=== PATIENT | male | born 1935 ===

== ENCOUNTER 2022-07-05 16:48 | Emergency (ER) | payer MEDICARE, MEDICAID ==
[2022-07-05 18:00] LABS: #Lymphocytes 1.8 thou/uL (1.20-3.40); #Monocytes 0.7 thou/uL (0.11-0.59); #Neutrophils 6.9 thou/uL (1.40-6.50); %Basophils 0.4 % (0.0-1.0); %Eosinophils 0.4 % (0.0-10.0); %Neutrophils 73.2 % (42.0-75.0); Hemoglobin 10.5 g/dL (14.0-18.0); Mean Corpuscular HGB CONC 33.8 g/dL (32.0-36.0); Mean Corpuscular Hemoglobin 27.8 pg (27.0-31.0); Mean Corpuscular Volume 82.2 fl (78.0-98.0); Mean Platelet Volume 6.3 fL (7.4-10.4); Platelet Count 411 10x3/uL (130-400); RBC Distribution Width 14.3 % (11.5-14.5); Red Blood Cell (RBC) Count 3.79 mill/uL (4.70-6.10); White Blood Cell (WBC) Count 9.4 10x3/uL (4.8-10.8)
[2022-07-05] MEDS ORDERED: cefTRIAXone\\ROCEPHIN 1 GM VIAL ONE (18:08)
[2022-07-05 18:21] LABS: ALT (SGPT) 8 U/L (8-55); AST (SGOT) 25 U/L (5-34); Albumin 3.6 g/dL (3.4-4.8); Alkaline Phosphatase 62 U/L (40-110); Anion Gap 13 mmol/L (10-20); BUN (Urea Nitrogen) 18 mg/dL (8.4-25.7); Bilirubin, Total 0.5 mg/dL (0.2-1.2); CK (CPK) 87 U/L (30-200); Calc. Creatinine Clearance 0 mL/min (70-130); Calcium 9.5 mg/dL (7.8-10.44); Carbon Dioxide 24 mmol/L (23-31); Chloride 103 mmol/L (98-107); Estimated GFR 78; Globulin 3.5 g/dL (2.4-3.5); Glucose 104 mg/dL (83-110); Lipase 40 U/L (8-78); Potassium 3.8 mmol/L (3.5-5.1); Protein, Total 7.1 g/dL (5.8-8.1); Sodium 136 mmol/L (136-145)
[2022-07-05 18:39] LABS: CKMB 0.7 ng/mL (0-6.6)
[2022-07-05 19:28] LABS: Bilirubin Negative (Negative); Blood, Urine Negative (Negative); Clarity Clear (Clear); Glucose, Urine (Dipstick) Normal (Negative); Ketone, Urine Negative (Negative); Leukocyte Negative Leu/uL (Negative); Nitrite Negative (Negative); Protein, Urine (Dipstick) Negative (Neg-Trace); Specific Gravity, Urine 1.013 (1.002-1.036); pH, Urine 6.5 (5.0-9.0)
[2022-07-05 20:06] LABS: Troponin I 0.033 ng/mL (< 0.028)
== END 2022-07-05 20:27 | disposition home or self-care (01) ==
LOC: ERS 16:48
DX: J18.9 Pneumonia, unspecified organism (principal); F17.210 Nicotine dependence, cigarettes, uncomplicated
CPT/HCPCS: 36415; 71045; 80053; 81003; 82550; 82553; 83605; 83690; 83880; 84484; 85025; 87040; 93005; 96365; J0696

== ENCOUNTER 2022-07-08 16:06 | Inpatient (IN) | payer MEDICARE, MEDICAID ==
[~2022-07-08 16:06] MED LIST: Iopamidol-370 76% 500 ML 1 ML ONE
[2022-07-08] MEDS ORDERED: Ipratropium/Albuterol 3 ML NEB ONE (16:37)
[2022-07-08] MEDS ORDERED: Lidocaine 1% w/Epinephrine 1:100K 20 ML VIAL ONE (17:03)
[2022-07-08 17:10] LABS: #Lymphocytes 1.5 thou/uL (1.20-3.40); #Monocytes 0.5 thou/uL (0.11-0.59); #Neutrophils 8.5 thou/uL (1.40-6.50); %Basophils 0.1 % (0.0-1.0); %Eosinophils 0.2 % (0.0-10.0); %Lymphocytes 13.9 % (21.0-51.0); %Monocytes 4.5 % (0.0-10.0); %Neutrophils 81.4 % (42.0-75.0); Hemoglobin 11.3 g/dL (14.0-18.0); Mean Corpuscular HGB CONC 34.8 g/dL (32.0-36.0); Mean Corpuscular Hemoglobin 28.4 pg (27.0-31.0); Mean Corpuscular Volume 81.6 fl (78.0-98.0); Mean Platelet Volume 6.3 fL (7.4-10.4); Platelet Count 338 10x3/uL (130-400); RBC Distribution Width 14.4 % (11.5-14.5); White Blood Cell (WBC) Count 10.5 10x3/uL (4.8-10.8)
[2022-07-08 17:35] LABS: ALT (SGPT) 9 U/L (8-55); AST (SGOT) 27 U/L (5-34); Albumin 3.5 g/dL (3.4-4.8); Alkaline Phosphatase 61 U/L (40-110); Anion Gap 14 mmol/L (10-20); BUN (Urea Nitrogen) 16 mg/dL (8.4-25.7); Bilirubin, Total 0.4 mg/dL (0.2-1.2); Calc. Creatinine Clearance 0 mL/min (70-130); Calcium 9.3 mg/dL (7.8-10.44); Carbon Dioxide 21 mmol/L (23-31); Chloride 106 mmol/L (98-107); Estimated GFR 70; Globulin 3.4 g/dL (2.4-3.5); Glucose 115 mg/dL (83-110); Potassium 3.4 mmol/L (3.5-5.1); Protein, Total 6.9 g/dL (5.8-8.1); Sodium 138 mmol/L (136-145)
[2022-07-08 17:55] LABS: CKMB 1.4 ng/mL (0-6.6)
[2022-07-08] MEDS ORDERED: cefTRIAXone\\ROCEPHIN 2 GM VIAL ONE (17:58)
[2022-07-08] MEDS ORDERED: Azithromycin 500 MG VIAL ONE (17:58)
[2022-07-08] MEDS ORDERED: Boostrix 0.5 ML (Tdap) VIAL (>/=7 yrs of age) ONE (18:17)
[2022-07-08] MEDS ORDERED: Azithromycin 250 MG TAB PO SCH (18:30)
[2022-07-08] MEDS ORDERED: Calcium Carbonate 500 MG ChewTAB PO PRN (18:31)
[2022-07-08] MEDS ORDERED: Guaifenesin DM 100-10/5 ML UDCUP PO PRN (18:31)
[2022-07-08] MEDS ORDERED: Ondansetron PF 4 MG/2 ML Vial IVP PRN (18:31)
[2022-07-08] MEDS ORDERED: Benzonatate 100 MG CAP PO PRN (18:34)
[2022-07-08] MEDS ORDERED: Dextrose 5% in Water 1,000 ML IV PRN (20:44)
[2022-07-08] MEDS ORDERED: HumaLOG 300 UNITS/3 ML VIAL SC PRN (20:44)
[2022-07-08] MEDS ORDERED: Dextrose 50% Abboject 50 ML SYRINGE SLOW IVP PRN (20:44)
[2022-07-08] MEDS: Nicotine 14 MG PATCH TD SCH (20:58)
[2022-07-08] MEDS: methylPREDNISolone Sod Succ 40 MG VIAL IVP SCH (20:59)
[2022-07-08] MEDS ORDERED: Potassium Chloride 20 MEQ TAB PO SCH (21:00)
[2022-07-08 21:40] LABS: SARS-CoV-2 NAA Rapid Test Not Detected (NotDetected)
[2022-07-08 23:46] LABS: Strep pneumo Urine Ag NEGATIVE (NEGATIVE)
[2022-07-09 05:10] LABS: #Basophils 0.1 thou/uL (0.0-0.2); #Lymphocytes 0.9 thou/uL (1.20-3.40); #Monocytes 0.1 thou/uL (0.11-0.59); #Neutrophils 5.4 thou/uL (1.40-6.50); %Basophils 1.4 % (0.0-1.0); %Lymphocytes 13.4 % (21.0-51.0); %Monocytes 1.7 % (0.0-10.0); %Neutrophils 83.5 % (42.0-75.0); Hemoglobin 10.7 g/dL (14.0-18.0); Mean Corpuscular HGB CONC 34.2 g/dL (32.0-36.0); Mean Corpuscular Volume 81.9 fl (78.0-98.0); Mean Platelet Volume 6.2 fL (7.4-10.4); Platelet Count 339 10x3/uL (130-400); RBC Distribution Width 14.2 % (11.5-14.5); Red Blood Cell (RBC) Count 3.82 mill/uL (4.70-6.10); White Blood Cell (WBC) Count 6.5 10x3/uL (4.8-10.8)
[2022-07-09 05:38] LABS: ALT (SGPT) 10 U/L (8-55); AST (SGOT) 27 U/L (5-34); Albumin 3.4 g/dL (3.4-4.8); Alkaline Phosphatase 57 U/L (40-110); Anion Gap 16 mmol/L (10-20); BUN (Urea Nitrogen) 15 mg/dL (8.4-25.7); Bilirubin, Total 0.3 mg/dL (0.2-1.2); Calc. Creatinine Clearance 69 mL/min (70-130); Calcium 9.4 mg/dL (7.8-10.44); Carbon Dioxide 21 mmol/L (23-31); Chloride 106 mmol/L (98-107); Estimated GFR 85; Globulin 3.4 g/dL (2.4-3.5); Glucose 133 mg/dL (83-110); Potassium 3.7 mmol/L (3.5-5.1); Protein, Total 6.8 g/dL (5.8-8.1); Sodium 139 mmol/L (136-145)
[2022-07-09] MEDS: methylPREDNISolone Sod Succ 40 MG VIAL IVP SCH ×2 (10:06→20:12)
[2022-07-09] MEDS: Aspirin 81 mg Enteric Coated Tablet PO SCH (10:06)
[2022-07-09] MEDS: Nicotine 14 MG PATCH TD SCH (18:01)
[2022-07-09] MEDS: cefTRIAXone\\ROCEPHIN 1 GM in Sodium Chloride 0.9% 100 ML IVPB SCH (18:03)
[2022-07-09] MEDS: Azithromycin 500 MG in Sodium Chloride 0.9% 250 ML 250 ML IVPB SCH (20:12)
[2022-07-10] MEDS ORDERED: Metoprolol Tartrate 5 MG/5 ML VIAL ONE (00:39)
[2022-07-10] MEDS ORDERED: Metoprolol Tartrate 5 MG/5 ML VIAL IVP SCH (00:45)
[2022-07-10 01:05] LABS: #Lymphocytes 1.4 thou/uL (1.20-3.40); #Monocytes 0.5 thou/uL (0.11-0.59); #Neutrophils 12.7 thou/uL (1.40-6.50); %Basophils 0.1 % (0.0-1.0); %Eosinophils 0.1 % (0.0-10.0); %Lymphocytes 9.2 % (21.0-51.0); %Monocytes 3.5 % (0.0-10.0); Hemoglobin 11.5 g/dL (14.0-18.0); Mean Corpuscular HGB CONC 35.2 g/dL (32.0-36.0); Mean Corpuscular Hemoglobin 28.7 pg (27.0-31.0); Mean Corpuscular Volume 81.4 fl (78.0-98.0); Mean Platelet Volume 6.5 fL (7.4-10.4); Platelet Count 395 10x3/uL (130-400); RBC Distribution Width 14.4 % (11.5-14.5); Red Blood Cell (RBC) Count 4.02 mill/uL (4.70-6.10); White Blood Cell (WBC) Count 14.6 10x3/uL (4.8-10.8)
[2022-07-10] MEDS ORDERED: Lorazepam 2 MG/ML VIAL SLOW IVP SCH ×2 (01:15→04:45)
[2022-07-10 01:22] LABS: ALT (SGPT) 11 U/L (8-55); AST (SGOT) 30 U/L (5-34); Albumin 3.8 g/dL (3.4-4.8); Alkaline Phosphatase 61 U/L (40-110); Anion Gap 16 mmol/L (10-20); BUN (Urea Nitrogen) 24 mg/dL (8.4-25.7); Bilirubin, Total 0.3 mg/dL (0.2-1.2); Calc. Creatinine Clearance 51 mL/min (70-130); Calcium 9.4 mg/dL (7.8-10.44); Carbon Dioxide 20 mmol/L (23-31); Chloride 104 mmol/L (98-107); Estimated GFR 64; Globulin 3.5 g/dL (2.4-3.5); Glucose 144 mg/dL (83-110); Magnesium 1.8 mg/dL (1.6-2.6); Potassium 3.9 mmol/L (3.5-5.1); Protein, Total 7.3 g/dL (5.8-8.1); Sodium 136 mmol/L (136-145)
[2022-07-10] MEDS ORDERED: Magnesium Sulfate 2 GM in Sodium Chloride 0.9% 100 ML IVPB SCH (05:30)
[2022-07-10] MEDS ORDERED: Magnesium 2 GM/50 ML(in water) 2 GM in Premix Bag 1 BAG IVPB SCH (05:30)
[2022-07-10] MEDS: methylPREDNISolone Sod Succ 40 MG VIAL IVP SCH ×2 (09:48→20:04)
[2022-07-10] MEDS: Aspirin 81 mg Enteric Coated Tablet PO SCH (09:48)
[2022-07-10] MEDS: Metoprolol Tartrate 25 MG TAB PO SCH ×2 (09:50→20:04)
[2022-07-10] MEDS ORDERED: Digoxin 0.5 MG/2 ML AMP SLOW IVP SCH ×2 (11:00→13:30)
[2022-07-10] MEDS: Lorazepam 2 MG/ML VIAL SLOW IVP PRN ×2 (11:23→21:45)
[2022-07-10 16:29] LABS: Actual Bicarbonate (HCO3a) 25.6 mEq/L (22-28); Base Excess (BEa) 1.8 mEq/L (-2.0 to +3.0); CO2 Tension 37.5 mmHg (35.0-45.0); Calcium, Ionized (arterial) 1.21 mmol/L (1.12-1.30); Carboxyhemoglobin (COHb) 0.2 gm% (0.0-3.0); Hemoglobin (Hb) 12.5 g/dL (14.0-18.0); Potassium - ABG Lab 3.65 mmol/L (3.70-5.30); pH, Arterial 7.45 (7.35-7.45)
[2022-07-10] MEDS ORDERED: Haloperidol Lactate 5 MG/ML VIAL SLOW IVP SCH (17:00)
[2022-07-10 17:01] LABS: Puncture Site LBA
[2022-07-10 17:02] LABS: ALV-art Gradient 33.855 mmHg (0-20)
[2022-07-10] MEDS: cefTRIAXone\\ROCEPHIN 1 GM in Sodium Chloride 0.9% 100 ML IVPB SCH (17:10)
[2022-07-10] MEDS: Ciprofloxacin 0.3% Ophth Soln 2.5 ml Bottle R EYE SCH ×2 (18:42→21:23)
[2022-07-10] MEDS: Nicotine 14 MG PATCH TD SCH (18:44)
[2022-07-10] MEDS: QUEtiapine 25 MG TAB PO SCH (20:04)
[2022-07-10] MEDS: Azithromycin 500 MG in Sodium Chloride 0.9% 250 ML 250 ML IVPB SCH (21:17)
[2022-07-10] MEDS: Ipratropium/Albuterol 3 ML NEB NEB PRN (22:02)
[2022-07-11 04:36] LABS: #Lymphocytes 1.2 thou/uL (1.20-3.40); #Monocytes 0.8 thou/uL (0.11-0.59); %Basophils 0.2 % (0.0-1.0); %Eosinophils 0.1 % (0.0-10.0); %Lymphocytes 8.3 % (21.0-51.0); %Monocytes 5.6 % (0.0-10.0); %Neutrophils 85.9 % (42.0-75.0); Hemoglobin 12.2 g/dL (14.0-18.0); Mean Corpuscular HGB CONC 35.9 g/dL (32.0-36.0); Mean Corpuscular Hemoglobin 29.2 pg (27.0-31.0); Mean Corpuscular Volume 81.4 fl (78.0-98.0); Mean Platelet Volume 6.2 fL (7.4-10.4); Platelet Count 429 10x3/uL (130-400); RBC Distribution Width 14.3 % (11.5-14.5); Red Blood Cell (RBC) Count 4.18 mill/uL (4.70-6.10)
[2022-07-11] MEDS: Ciprofloxacin 0.3% Ophth Soln 2.5 ml Bottle R EYE SCH ×5 (04:42→21:26)
[2022-07-11 05:05] LABS: Anion Gap 19 mmol/L (10-20); BUN (Urea Nitrogen) 23 mg/dL (8.4-25.7); Calc. Creatinine Clearance 70 mL/min (70-130); Calcium 9.7 mg/dL (7.8-10.44); Carbon Dioxide 20 mmol/L (23-31); Chloride 107 mmol/L (98-107); Estimated GFR 86; Glucose 130 mg/dL (83-110); Magnesium 2.3 mg/dL (1.6-2.6); Potassium 3.7 mmol/L (3.5-5.1); Sodium 142 mmol/L (136-145)
[2022-07-11] MEDS: Lorazepam 2 MG/ML VIAL SLOW IVP PRN ×3 (05:26→22:13)
[2022-07-11] MEDS ORDERED: Metoprolol Tartrate 5 MG/5 ML VIAL IVP SCH ×2 (06:30→22:30)
[2022-07-11] MEDS ORDERED: Potassium Chloride 20 MEQ TAB PO SCH (09:00)
[2022-07-11] MEDS ORDERED: QUEtiapine 25 MG TAB PO SCH (09:00)
[2022-07-11] MEDS: Aspirin 81 mg Enteric Coated Tablet PO SCH (09:24)
[2022-07-11] MEDS: methylPREDNISolone Sod Succ 40 MG VIAL IVP SCH (09:24)
[2022-07-11] MEDS: Metoprolol Tartrate 25 MG TAB PO SCH ×3 (09:24→23:17)
[2022-07-11] MEDS ORDERED: Digoxin 0.5 MG/2 ML AMP SLOW IVP SCH (14:30)
[2022-07-11] MEDS: Amiodarone 200 MG TAB PO SCH ×3 (15:06→23:17)
[2022-07-11] MEDS: Nicotine 14 MG PATCH TD SCH (17:18)
[2022-07-11] MEDS: cefTRIAXone\\ROCEPHIN 1 GM in Sodium Chloride 0.9% 100 ML IVPB SCH (17:18)
[2022-07-11] MEDS: QUEtiapine 25 MG TAB PO SCH ×2 (20:12→23:17)
[2022-07-11] MEDS: Apixaban 5 MG TAB PO SCH ×2 (20:12→23:17)
[2022-07-11] MEDS: Azithromycin 500 MG in Sodium Chloride 0.9% 250 ML 250 ML IVPB SCH (21:21)
[2022-07-12] MEDS ORDERED: Lorazepam 2 MG/ML VIAL SLOW IVP SCH (00:45)
[2022-07-12 02:29] LABS: #Lymphocytes 1.7 thou/uL (1.20-3.40); #Monocytes 1.1 thou/uL (0.11-0.59); #Neutrophils 11.2 thou/uL (1.40-6.50); %Basophils 0.1 % (0.0-1.0); %Eosinophils 0.1 % (0.0-10.0); %Monocytes 8.1 % (0.0-10.0); %Neutrophils 79.8 % (42.0-75.0); Actual Bicarbonate (HCO3v) 23 mEq/L (22-28); Analyzer IN Cardio ER; Base Excess -0.1 mEq/L (-2.0 to +3.0); Chloride (VBG) 107 mmol/L (98-106); Hemoglobin 12.1 g/dL (14.0-18.0); Hemoglobin (Hb) 13.1 g/dL (12.6-17.4); Mean Corpuscular HGB CONC 33.9 g/dL (32.0-36.0); Mean Corpuscular Volume 82.6 fl (78.0-98.0); Mean Platelet Volume 6.4 fL (7.4-10.4); Platelet Count 405 10x3/uL (130-400); Potassium (VBG) 3.81 mmol/L (3.70-5.30); RBC Distribution Width 14.6 % (11.5-14.5); Red Blood Cell (RBC) Count 4.33 mill/uL (4.70-6.10); Sodium 141.8 mmol/L (133-146); pH (venous) 7.48 (7.32-7.43)
[2022-07-12 02:59] LABS: Anion Gap 19 mmol/L (10-20); BUN (Urea Nitrogen) 30 mg/dL (8.4-25.7); Calc. Creatinine Clearance 60 mL/min (70-130); Calcium 9.6 mg/dL (7.8-10.44); Carbon Dioxide 20 mmol/L (23-31); Chloride 109 mmol/L (98-107); Estimated GFR 77; Glucose 120 mg/dL (83-110); Magnesium 2.2 mg/dL (1.6-2.6); Potassium 3.9 mmol/L (3.5-5.1); Sodium 144 mmol/L (136-145)
[2022-07-12] MEDS: Ipratropium/Albuterol 3 ML NEB NEB PRN (05:43)
[2022-07-12] MEDS ORDERED: Furosemide 40 MG/4 ML VIAL ONE (05:54)
[2022-07-12] MEDS ORDERED: Furosemide 40 MG/4 ML VIAL SLOW IVP SCH (06:00)
[2022-07-12 06:25] LABS: Actual Bicarbonate (HCO3a) 24.4 mEq/L (22-28); Base Excess (BEa) 2.3 mEq/L (-2.0 to +3.0); CO2 Tension 30.3 mmHg (35.0-45.0); Calcium, Ionized (arterial) 1.19 mmol/L (1.12-1.30); Hemoglobin (Hb) 12.9 g/dL (14.0-18.0); O2 Tension (PaO2), arterial 217.3 mmHg (> 60.0); pH, Arterial 7.52 (7.35-7.45)
[2022-07-12 06:30] LABS: ALV-art Gradient 172.625 mmHg (0-20); Puncture Site RRA
[2022-07-12] MEDS: Ciprofloxacin 0.3% Ophth Soln 2.5 ml Bottle R EYE SCH ×5 (07:29→21:31)
[2022-07-12] MEDS: Amiodarone 450 MG, Admixture Fee 1 EACH in Dextrose 5% in Water 250 ML IVPB SCH ×2 (08:57→15:36)
[2022-07-12] MEDS: Digoxin 0.5 MG/2 ML AMP SLOW IVP SCH (09:23)
[2022-07-12] MEDS: Apixaban 5 MG TAB PO SCH (09:26)
[2022-07-12] MEDS: Aspirin 81 mg Enteric Coated Tablet PO SCH (09:26)
[2022-07-12] MEDS: methylPREDNISolone Sod Succ 40 MG VIAL IVP SCH (09:27)
[2022-07-12] MEDS: Metoprolol Tartrate 25 MG TAB PO SCH ×2 (09:28→21:36)
[2022-07-12] MEDS ORDERED: Metoprolol Tartrate 5 MG/5 ML VIAL IVP PRN ×2 (10:56→11:14)
[2022-07-12] MEDS: Nicotine 14 MG PATCH TD SCH (17:02)
[2022-07-12] MEDS: cefTRIAXone\\ROCEPHIN 1 GM in Sodium Chloride 0.9% 100 ML IVPB SCH (17:02)
[2022-07-12] MEDS: Pantoprazole 40 MG VIAL IVP SCH (20:49)
[2022-07-12] MEDS: Azithromycin 500 MG in Sodium Chloride 0.9% 250 ML 250 ML IVPB SCH (20:49)
[2022-07-13 04:09] LABS: #Lymphocytes 1.3 thou/uL (1.20-3.40); #Monocytes 1.7 thou/uL (0.11-0.59); #Neutrophils 15.2 thou/uL (1.40-6.50); %Basophils 0.1 % (0.0-1.0); %Eosinophils 0.1 % (0.0-10.0); %Lymphocytes 7.1 % (21.0-51.0); %Monocytes 9.2 % (0.0-10.0); %Neutrophils 83.6 % (42.0-75.0); Hemoglobin 11.4 g/dL (14.0-18.0); Mean Corpuscular HGB CONC 34.6 g/dL (32.0-36.0); Mean Corpuscular Hemoglobin 28.4 pg (27.0-31.0); Mean Corpuscular Volume 82.1 fl (78.0-98.0); Mean Platelet Volume 6.9 fL (7.4-10.4); Platelet Count 319 10x3/uL (130-400); RBC Distribution Width 14.5 % (11.5-14.5); White Blood Cell (WBC) Count 18.1 10x3/uL (4.8-10.8)
[2022-07-13 04:40] LABS: Anion Gap 15 mmol/L (10-20); BUN (Urea Nitrogen) 35 mg/dL (8.4-25.7); Calc. Creatinine Clearance 54 mL/min (70-130); Calcium 9.4 mg/dL (7.8-10.44); Carbon Dioxide 25 mmol/L (23-31); Chloride 109 mmol/L (98-107); Estimated GFR 68; Glucose 121 mg/dL (83-110); Magnesium 2.2 mg/dL (1.6-2.6); Potassium 3.5 mmol/L (3.5-5.1); Sodium 145 mmol/L (136-145)
[2022-07-13] MEDS: Ciprofloxacin 0.3% Ophth Soln 2.5 ml Bottle R EYE SCH ×5 (05:40→22:10)
[2022-07-13] MEDS: Furosemide 20 MG/2 ML VIAL SLOW IVP SCH ×2 (05:40→15:25)
[2022-07-13] MEDS: Amiodarone 450 MG, Admixture Fee 1 EACH in Dextrose 5% in Water 250 ML IVPB SCH ×2 (06:37→22:10)
[2022-07-13] MEDS: Digoxin 0.5 MG/2 ML AMP SLOW IVP SCH (09:16)
[2022-07-13] MEDS: methylPREDNISolone Sod Succ 40 MG VIAL IVP SCH (09:19)
[2022-07-13] MEDS: Aspirin 81 mg Enteric Coated Tablet PO SCH (11:45)
[2022-07-13] MEDS: Metoprolol Tartrate 25 MG TAB PO SCH ×2 (11:46→22:10)
[2022-07-13] MEDS ORDERED: Polyethylene Glycol 3350 17 GM Packet PO PRN (14:04)
[2022-07-13] MEDS ORDERED: Ipratropium/Albuterol 3 ML NEB EZPAP SCH (14:30)
[2022-07-13 14:34] LABS: Actual Bicarbonate (HCO3v) 27 mEq/L (22-28); Base Excess 3.1 mEq/L (-2.0 to +3.0); Calcium, Ionized (venous) 1.12 mmol/L (1.16-1.32); Chloride (VBG) 107 mmol/L (98-106); Hemoglobin (Hb) 12.7 g/dL (12.6-17.4); Potassium (VBG) 3.59 mmol/L (3.70-5.30); Sodium 144.8 mmol/L (133-146); pH (venous) 7.48 (7.32-7.43)
[2022-07-13] MEDS ORDERED: Scopolamine 1.5 mg/72 hour Patch TD SCH (15:00)
[2022-07-13] MEDS ORDERED: Ipratropium/Albuterol 3 ML NEB NEB PRN (15:06)
[2022-07-13] MEDS: Scopolamine 1.5 mg/72 hour Patch TD SCH (15:46)
[2022-07-13] MEDS: cefTRIAXone\\ROCEPHIN 1 GM in Sodium Chloride 0.9% 100 ML IVPB SCH (17:41)
[2022-07-13] MEDS: Nicotine 14 MG PATCH TD SCH (17:51)
[2022-07-13] MEDS: Azithromycin 500 MG in Sodium Chloride 0.9% 250 ML 250 ML IVPB SCH (20:19)
[2022-07-13] MEDS: Pantoprazole 40 MG VIAL IVP SCH (20:19)
[2022-07-14] MEDS: Furosemide 20 MG/2 ML VIAL SLOW IVP SCH (05:07)
[2022-07-14] MEDS: Ciprofloxacin 0.3% Ophth Soln 2.5 ml Bottle R EYE SCH ×5 (05:07→21:18)
[2022-07-14] MEDS: Sodium Chloride 0.9% 1,000 ML IV SCH ×2 (08:27→17:42)
[2022-07-14 10:37] LABS: Hemoglobin 11.5 g/dL (14.0-18.0); Mean Corpuscular HGB CONC 32.6 g/dL (32.0-36.0); Mean Corpuscular Hemoglobin 27.5 pg (27.0-31.0); Mean Corpuscular Volume 84.3 fl (78.0-98.0); Mean Platelet Volume 7.1 fL (7.4-10.4); Platelet Count 326 10x3/uL (130-400); RBC Distribution Width 14.8 % (11.5-14.5); Red Blood Cell (RBC) Count 4.16 mill/uL (4.70-6.10); White Blood Cell (WBC) Count 24.1 10x3/uL (4.8-10.8)
[2022-07-14 11:11] LABS: ALT (SGPT) 17 U/L (8-55); AST (SGOT) 40 U/L (5-34); Albumin 3.2 g/dL (3.4-4.8); Alkaline Phosphatase 57 U/L (40-110); Anion Gap 19 mmol/L (10-20); BUN (Urea Nitrogen) 34 mg/dL (8.4-25.7); Bilirubin, Total 0.6 mg/dL (0.2-1.2); Calc. Creatinine Clearance 55 mL/min (70-130); Calcium 9.3 mg/dL (7.8-10.44); Carbon Dioxide 20 mmol/L (23-31); Chloride 108 mmol/L (98-107); Estimated GFR 77; Globulin 3.6 g/dL (2.4-3.5); Glucose 120 mg/dL (83-110); Potassium 3.6 mmol/L (3.5-5.1); Protein, Total 6.8 g/dL (5.8-8.1); Sodium 143 mmol/L (136-145)
[2022-07-14] MEDS: Aspirin 81 mg Enteric Coated Tablet PO SCH (11:29)
[2022-07-14] MEDS: Metoprolol Tartrate 25 MG TAB PO SCH ×2 (11:30→21:18)
[2022-07-14] MEDS: methylPREDNISolone Sod Succ 40 MG VIAL IVP SCH (11:46)
[2022-07-14] MEDS: Digoxin 0.5 MG/2 ML AMP SLOW IVP SCH (11:47)
[2022-07-14 12:54] LABS: Band 3 % (5-11); Lymphocytes 3 % (21-51); MDiff Complete? YES; Monocytes 10 % (0-10); Neutrophil 84 % (42-75); Platelet Morphology Comment Appears Adequate; Polychromasia SLIGHT = 2-3 cells (100X) (0-2/hpf)
[2022-07-14] MEDS: Amiodarone 450 MG, Admixture Fee 1 EACH in Dextrose 5% in Water 250 ML IVPB SCH (13:04)
[2022-07-14] MEDS ORDERED: Midazolam HCl 2 mg/2 ml Vial ONE (13:48)
[2022-07-14] MEDS ORDERED: Rocuronium Bromide 10 MG/ML (10ML VIAL) ONE (13:59)
[2022-07-14] MEDS ORDERED: Fentanyl BOLUS 250 ML IVPB PRN (15:30)
[2022-07-14] MEDS ORDERED: Fentanyl CADD 100 ML ONE (16:37)
[2022-07-14] MEDS: Fentanyl CADD 100 ML IV SCH (16:50)
[2022-07-14] MEDS: cefTRIAXone\\ROCEPHIN 1 GM in Sodium Chloride 0.9% 100 ML IVPB SCH (17:43)
[2022-07-14] MEDS: Pantoprazole 40 MG VIAL IVP SCH (21:18)
[2022-07-14] MEDS: Nicotine 14 MG PATCH TD SCH (21:18)
[2022-07-14] MEDS: NOREPINEPHRINE 8 MG/250 ML-D5W 250 ML IVPB SCH (21:23)
[2022-07-15] MEDS: Amiodarone 450 MG, Admixture Fee 1 EACH in Dextrose 5% in Water 250 ML IVPB SCH (04:06)
[2022-07-15] MEDS: Ciprofloxacin 0.3% Ophth Soln 2.5 ml Bottle R EYE SCH ×5 (05:10→20:57)
[2022-07-15] MEDS: Sodium Chloride 0.9% 1,000 ML IV SCH ×3 (05:10→21:01)
[2022-07-15 05:20] LABS: Anion Gap 16 mmol/L (10-20); BUN (Urea Nitrogen) 37 mg/dL (8.4-25.7); Calc. Creatinine Clearance 54 mL/min (70-130); Calcium 8.4 mg/dL (7.8-10.44); Carbon Dioxide 20 mmol/L (23-31); Chloride 112 mmol/L (98-107); Estimated GFR 70; Glucose 150 mg/dL (83-110); Potassium 3.3 mmol/L (3.5-5.1); Sodium 145 mmol/L (136-145)
[2022-07-15 05:26] LABS: Band 8 % (5-11); Eosinophils 9 % (0-10); Hemoglobin 9.6 g/dL (14.0-18.0); Hypochromia SLIGHT = 6-15 cells (100X) (0-5/hpf); Lymphocytes 7 % (21-51); MDiff Complete? YES; Mean Corpuscular Hemoglobin 27.6 pg (27.0-31.0); Mean Corpuscular Volume 83.7 fl (78.0-98.0); Mean Platelet Volume 7.8 fL (7.4-10.4); Monocytes 6 % (0-10); Neutrophil 70 % (42-75); Platelet Count 245 10x3/uL (130-400); Platelet Morphology Comment Appears Adequate; RBC Distribution Width 14.7 % (11.5-14.5); Red Blood Cell (RBC) Count 3.48 mill/uL (4.70-6.10); White Blood Cell (WBC) Count 17.6 10x3/uL (4.8-10.8)
[2022-07-15 07:54] LABS: Phosphorus 2.7 mg/dL (2.3-4.7)
[2022-07-15 08:28] LABS: Actual Bicarbonate (HCO3a) 21.4 mEq/L (22-28); Base Excess (BEa) -0.3 mEq/L (-2.0 to +3.0); CO2 Tension 25.8 mmHg (35.0-45.0); Calcium, Ionized (arterial) 1.14 mmol/L (1.12-1.30); Carboxyhemoglobin (COHb) 0.3 gm% (0.0-3.0); Hemoglobin (Hb) 9.9 g/dL (14.0-18.0); O2 Tension (PaO2), arterial 154.5 mmHg (> 60.0); Potassium - ABG Lab 3.19 mmol/L (3.70-5.30); pH, Arterial 7.54 (7.35-7.45)
[2022-07-15 08:30] LABS: Puncture Site RRA
[2022-07-15] MEDS: Potassium Chloride 20 MEQ in Premix Bag 1 BAG IVPB SCH ×2 (09:01→09:45)
[2022-07-15] MEDS: Digoxin 0.5 MG/2 ML AMP SLOW IVP SCH (09:02)
[2022-07-15] MEDS: methylPREDNISolone Sod Succ 40 MG VIAL IVP SCH (09:02)
[2022-07-15] MEDS: Metoprolol Tartrate 25 MG TAB PER TUBE SCH ×2 (09:06→20:58)
[2022-07-15] MEDS: Aspirin Chewable 81 MG TAB PO SCH (09:07)
[2022-07-15] MEDS ORDERED: Midazolam HCl 2 mg/2 ml Vial ONE (14:44)
[2022-07-15] MEDS ORDERED: Midazolam HCl 2 mg/2 ml Vial FS SCH (15:00)
[2022-07-15 15:11] LABS: Fluid, pH - Pleural Fld 7.34 (7.60 - 7.66)
[2022-07-15] MEDS ORDERED: Midazolam HCl 2 mg/2 ml Vial SLOW IVP SCH (15:45)
[2022-07-15] MEDS: Fentanyl CADD 100 ML IV SCH (16:28)
[2022-07-15 16:38] LABS: RBC Count-Automated (BF) 2321 /cu.mm; WBC/Nucleated-Auto (BF) 981 /cu.mm
[2022-07-15 16:50] LABS: BF Color Yellow; Body Fluid Source Pleural Fluid; Clarity Hazy (Clear); Tube # EDTA
[2022-07-15 16:54] LABS: BF Segmented Neutrophils 44 %; Cell Count Non Hematic 28 %; Lymphocytes 28 %
[2022-07-15] MEDS: cefTRIAXone\\ROCEPHIN 1 GM in Sodium Chloride 0.9% 100 ML IVPB SCH (17:00)
[2022-07-15] MEDS: HumaLOG 300 UNITS/3 ML VIAL SC PRN ×2 (17:01→21:42)
[2022-07-15] MEDS: Nicotine 14 MG PATCH TD SCH (17:45)
[2022-07-15] MEDS: Pantoprazole 40 MG VIAL IVP SCH (20:56)
[2022-07-15] MEDS: NOREPINEPHRINE 8 MG/250 ML-D5W 250 ML IVPB SCH (22:28)
[2022-07-16] MEDS: Ciprofloxacin 0.3% Ophth Soln 2.5 ml Bottle R EYE SCH ×5 (05:33→20:06)
[2022-07-16] MEDS: Digoxin 0.5 MG/2 ML AMP SLOW IVP SCH (08:50)
[2022-07-16] MEDS: methylPREDNISolone Sod Succ 40 MG VIAL IVP SCH (08:50)
[2022-07-16] MEDS: Aspirin Chewable 81 MG TAB PO SCH (08:50)
[2022-07-16] MEDS: Metoprolol Tartrate 25 MG TAB PER TUBE SCH (08:52)
[2022-07-16 08:57] LABS: #Lymphocytes 0.7 thou/uL (1.20-3.40); #Monocytes 1.1 thou/uL (0.11-0.59); #Neutrophils 15.5 thou/uL (1.40-6.50); %Basophils 0.1 % (0.0-1.0); %Lymphocytes 3.9 % (21.0-51.0); %Monocytes 6.5 % (0.0-10.0); %Neutrophils 89.5 % (42.0-75.0); Hemoglobin 10.6 g/dL (14.0-18.0); Mean Corpuscular HGB CONC 32.8 g/dL (32.0-36.0); Mean Corpuscular Volume 85.5 fl (78.0-98.0); Mean Platelet Volume 7.7 fL (7.4-10.4); Platelet Count 233 10x3/uL (130-400); RBC Distribution Width 14.9 % (11.5-14.5); Red Blood Cell (RBC) Count 3.77 mill/uL (4.70-6.10); White Blood Cell (WBC) Count 17.3 10x3/uL (4.8-10.8)
[2022-07-16 09:26] LABS: BUN (Urea Nitrogen) 40 mg/dL (8.4-25.7); Calc. Creatinine Clearance 53 mL/min (70-130); Calcium 8.6 mg/dL (7.8-10.44); Carbon Dioxide 18 mmol/L (23-31); Chloride 115 mmol/L (98-107); Estimated GFR 70; Glucose 182 mg/dL (83-110); Potassium 4.4 mmol/L (3.5-5.1); Sodium 145 mmol/L (136-145)
[2022-07-16 09:27] LABS: Anion Gap 17 mmol/L (10-20)
[2022-07-16] MEDS: HumaLOG 300 UNITS/3 ML VIAL SC PRN ×3 (10:18→22:50)
[2022-07-16] MEDS: Amiodarone 450 MG, Admixture Fee 1 EACH in Dextrose 5% in Water 250 ML IVPB SCH (12:14)
[2022-07-16] MEDS: Scopolamine 1.5 mg/72 hour Patch TD SCH (15:55)
[2022-07-16] MEDS: cefTRIAXone\\ROCEPHIN 1 GM in Sodium Chloride 0.9% 100 ML IVPB SCH (18:09)
[2022-07-16] MEDS: Nicotine 14 MG PATCH TD SCH (18:09)
[2022-07-16] MEDS: Sodium Chloride 0.9% 1,000 ML IV SCH (18:10)
[2022-07-16] MEDS: Pantoprazole 40 MG VIAL IVP SCH (20:04)
[2022-07-16] MEDS: Fentanyl CADD 100 ML IV SCH (22:28)
[2022-07-17 04:15] LABS: #Lymphocytes 0.6 thou/uL (1.20-3.40); #Neutrophils 11.2 thou/uL (1.40-6.50); %Basophils 0.1 % (0.0-1.0); %Lymphocytes 4.5 % (21.0-51.0); %Monocytes 7.8 % (0.0-10.0); %Neutrophils 87.6 % (42.0-75.0); Hemoglobin 9.6 g/dL (14.0-18.0); Mean Corpuscular HGB CONC 33.7 g/dL (32.0-36.0); Mean Corpuscular Hemoglobin 28.1 pg (27.0-31.0); Mean Corpuscular Volume 83.5 fl (78.0-98.0); Mean Platelet Volume 7.7 fL (7.4-10.4); Platelet Count 205 10x3/uL (130-400); RBC Distribution Width 14.5 % (11.5-14.5); Red Blood Cell (RBC) Count 3.41 mill/uL (4.70-6.10); White Blood Cell (WBC) Count 12.8 10x3/uL (4.8-10.8)
[2022-07-17 04:36] LABS: Anion Gap 12 mmol/L (10-20); BUN (Urea Nitrogen) 39 mg/dL (8.4-25.7); Calc. Creatinine Clearance 63 mL/min (70-130); Calcium 8.5 mg/dL (7.8-10.44); Carbon Dioxide 21 mmol/L (23-31); Chloride 117 mmol/L (98-107); Estimated GFR 84; Glucose 145 mg/dL (83-110); Potassium 3.9 mmol/L (3.5-5.1); Sodium 146 mmol/L (136-145)
[2022-07-17] MEDS: Sodium Chloride 0.9% 1,000 ML IV SCH ×2 (04:37→22:57)
[2022-07-17] MEDS: Ciprofloxacin 0.3% Ophth Soln 2.5 ml Bottle R EYE SCH ×4 (05:37→18:22)
[2022-07-17] MEDS: Aspirin Chewable 81 MG TAB PO SCH (09:10)
[2022-07-17] MEDS: methylPREDNISolone Sod Succ 40 MG VIAL IVP SCH (09:11)
[2022-07-17] MEDS: HumaLOG 300 UNITS/3 ML VIAL SC PRN ×2 (09:25→22:57)
[2022-07-17] MEDS: Fentanyl CADD 100 ML IV SCH (18:16)
[2022-07-17] MEDS: Nicotine 14 MG PATCH TD SCH (18:22)
[2022-07-17] MEDS: cefTRIAXone\\ROCEPHIN 1 GM in Sodium Chloride 0.9% 100 ML IVPB SCH (18:22)
[2022-07-17] MEDS: Amiodarone 200 MG TAB PER TUBE SCH (21:19)
[2022-07-17] MEDS: Pantoprazole 40 MG VIAL IVP SCH (21:19)
[2022-07-18 04:30] LABS: #Lymphocytes 0.7 thou/uL (1.20-3.40); #Monocytes 0.9 thou/uL (0.11-0.59); #Neutrophils 11.5 thou/uL (1.40-6.50); %Basophils 0.1 % (0.0-1.0); %Lymphocytes 5.3 % (21.0-51.0); %Monocytes 6.7 % (0.0-10.0); %Neutrophils 87.8 % (42.0-75.0); Hemoglobin 8.8 g/dL (14.0-18.0); Mean Corpuscular HGB CONC 33.7 g/dL (32.0-36.0); Mean Corpuscular Hemoglobin 28.4 pg (27.0-31.0); Mean Corpuscular Volume 84.2 fl (78.0-98.0); Mean Platelet Volume 8.3 fL (7.4-10.4); Platelet Count 201 10x3/uL (130-400); RBC Distribution Width 14.6 % (11.5-14.5); Red Blood Cell (RBC) Count 3.11 mill/uL (4.70-6.10); White Blood Cell (WBC) Count 13.1 10x3/uL (4.8-10.8)
[2022-07-18 04:49] LABS: Anion Gap 11 mmol/L (10-20); BUN (Urea Nitrogen) 37 mg/dL (8.4-25.7); Calc. Creatinine Clearance 66 mL/min (70-130); Calcium 8.3 mg/dL (7.8-10.44); Carbon Dioxide 22 mmol/L (23-31); Chloride 118 mmol/L (98-107); Estimated GFR 85; Glucose 179 mg/dL (83-110); Potassium 4.1 mmol/L (3.5-5.1); Sodium 147 mmol/L (136-145)
[2022-07-18 09:13] LABS: Actual Bicarbonate (HCO3v) 23 mEq/L (22-28); Base Excess -1.6 mEq/L (-2.0 to +3.0); Calcium, Ionized (venous) 1.15 mmol/L (1.16-1.32); Chloride (VBG) 119 mmol/L (98-106); Hemoglobin (Hb) 10.7 g/dL (12.6-17.4); Potassium (VBG) 4.19 mmol/L (3.70-5.30); Sodium 147.2 mmol/L (133-146); pH (venous) 7.39 (7.32-7.43)
[2022-07-18] MEDS: HumaLOG 300 UNITS/3 ML VIAL SC PRN ×3 (09:37→22:20)
[2022-07-18] MEDS: Aspirin Chewable 81 MG TAB PO SCH (09:40)
[2022-07-18] MEDS: methylPREDNISolone Sod Succ 40 MG VIAL IVP SCH (09:40)
[2022-07-18] MEDS: Amiodarone 200 MG TAB PER TUBE SCH ×3 (09:40→21:54)
[2022-07-18] MEDS ORDERED: Amiodarone 200 MG TAB PER TUBE SCH (10:45)
[2022-07-18] MEDS ORDERED: Lorazepam 2 MG/ML VIAL ONE (11:47)
[2022-07-18] MEDS ORDERED: Fentanyl CADD 100 ML ONE (11:52)
[2022-07-18] MEDS: Fentanyl CADD 100 ML IV SCH (11:53)
[2022-07-18] MEDS ORDERED: Lorazepam 2 MG/ML VIAL SLOW IVP PRN (14:02)
[2022-07-18] MEDS ORDERED: Morphine 2 MG/ML VIAL SLOW IVP PRN (14:15)
[2022-07-18] MEDS ORDERED: Propofol 1,000 MG/100 ML VIAL IV PRN (14:15)
[2022-07-18] MEDS ORDERED: Propofol BOLUS 1,000 MG/100 ML VIAL IV PRN (14:15)
[2022-07-18] MEDS: Nicotine 14 MG PATCH TD SCH (18:42)
[2022-07-18] MEDS: Pantoprazole 40 MG VIAL IVP SCH (21:54)
[2022-07-18] MEDS: Senokot S 8.6-50 MG TAB PO SCH (21:54)
[2022-07-18] MEDS: Sodium Chloride 0.9% 1,000 ML IV SCH (21:54)
[2022-07-19 04:12] LABS: #Lymphocytes 1.2 thou/uL (1.20-3.40); #Monocytes 1.1 thou/uL (0.11-0.59); #Neutrophils 12.8 thou/uL (1.40-6.50); %Basophils 0.3 % (0.0-1.0); %Eosinophils 0.1 % (0.0-10.0); %Lymphocytes 7.8 % (21.0-51.0); %Neutrophils 84.9 % (42.0-75.0); Hemoglobin 9.4 g/dL (14.0-18.0); Mean Corpuscular HGB CONC 33.8 g/dL (32.0-36.0); Mean Corpuscular Hemoglobin 28.4 pg (27.0-31.0); Mean Corpuscular Volume 84.2 fl (78.0-98.0); Mean Platelet Volume 8.4 fL (7.4-10.4); Platelet Count 222 10x3/uL (130-400); RBC Distribution Width 15.1 % (11.5-14.5); White Blood Cell (WBC) Count 15.1 10x3/uL (4.8-10.8)
[2022-07-19 04:33] LABS: ALT (SGPT) 41 U/L (8-55); AST (SGOT) 56 U/L (5-34); Albumin 2.1 g/dL (3.4-4.8); Alkaline Phosphatase 50 U/L (40-110); Anion Gap 13 mmol/L (10-20); BUN (Urea Nitrogen) 40 mg/dL (8.4-25.7); Bilirubin, Total 0.4 mg/dL (0.2-1.2); Calc. Creatinine Clearance 57 mL/min (70-130); Carbon Dioxide 20 mmol/L (23-31); Chloride 119 mmol/L (98-107); Estimated GFR 77; Globulin 2.9 g/dL (2.4-3.5); Glucose 212 mg/dL (83-110); Magnesium 2.5 mg/dL (1.6-2.6); Potassium 4.4 mmol/L (3.5-5.1); Sodium 148 mmol/L (136-145)
[2022-07-19] MEDS: Ipratropium/Albuterol 3 ML NEB NEB SCH ×4 (07:46→23:54)
[2022-07-19 08:10] LABS: Actual Bicarbonate (HCO3a) 22.5 mEq/L (22-28); Base Excess (BEa) -1.4 mEq/L (-2.0 to +3.0); CO2 Tension 35.6 mmHg (35.0-45.0); Calcium, Ionized (arterial) 1.16 mmol/L (1.12-1.30); Carboxyhemoglobin (COHb) 0.2 gm% (0.0-3.0); Hemoglobin (Hb) 9.8 g/dL (14.0-18.0); O2 Tension (PaO2), arterial 68.9 mmHg (> 60.0); pH, Arterial 7.42 (7.35-7.45)
[2022-07-19 08:18] LABS: Puncture Site LRA
[2022-07-19] MEDS ORDERED: Electrolyte Replacement Protocol 1 EACH FS SCH (08:30)
[2022-07-19] MEDS ORDERED: Dextrose 5% in Water 1,000 ML IV SCH (09:30)
[2022-07-19] MEDS ORDERED: Fentanyl CADD 100 ML ONE (10:09)
[2022-07-19] MEDS: Fentanyl CADD 100 ML IV SCH (10:12)
[2022-07-19] MEDS: Aspirin Chewable 81 MG TAB PO SCH (10:18)
[2022-07-19] MEDS: methylPREDNISolone Sod Succ 40 MG VIAL IVP SCH (10:18)
[2022-07-19] MEDS: Senokot S 8.6-50 MG TAB PO SCH ×2 (10:18→21:09)
[2022-07-19] MEDS: Amiodarone 200 MG TAB PER TUBE SCH ×3 (10:18→21:08)
[2022-07-19] MEDS: Polyethylene Glycol 3350 17 GM Packet PO SCH (10:19)
[2022-07-19] MEDS: HumaLOG 300 UNITS/3 ML VIAL SC PRN ×3 (10:37→23:20)
[2022-07-19 11:57] VITALS: BMI 24.1
[2022-07-19] MEDS ORDERED: Potassium Phosphate 15 MMOL in Sodium Chloride 0.9% 100 ML IVPB SCH (12:00)
[2022-07-19] MEDS: Scopolamine 1.5 mg/72 hour Patch TD SCH (15:28)
[2022-07-19] MEDS: Lorazepam 2 MG/ML VIAL SLOW IVP PRN ×2 (18:07→21:25)
[2022-07-19] MEDS: Nicotine 14 MG PATCH TD SCH (18:11)
[2022-07-19] MEDS: Pantoprazole 40 MG VIAL IVP SCH (21:09)
[2022-07-20] MEDS: Lorazepam 2 MG/ML VIAL SLOW IVP PRN ×5 (01:25→23:52)
[2022-07-20] MEDS: HumaLOG 300 UNITS/3 ML VIAL SC PRN ×3 (05:44→18:46)
[2022-07-20] MEDS: Ipratropium/Albuterol 3 ML NEB NEB SCH ×4 (07:17→23:17)
[2022-07-20 07:30] LABS: #Eosinphils 0.1 thou/uL (0.0-0.7); #Lymphocytes 1.2 thou/uL (1.20-3.40); #Monocytes 0.9 thou/uL (0.11-0.59); #Neutrophils 11.1 thou/uL (1.40-6.50); %Eosinophils 0.6 % (0.0-10.0); %Lymphocytes 9.1 % (21.0-51.0); %Neutrophils 83.2 % (42.0-75.0); Hemoglobin 10.4 g/dL (14.0-18.0); Mean Corpuscular Hemoglobin 27.8 pg (27.0-31.0); Mean Corpuscular Volume 84.2 fl (78.0-98.0); Mean Platelet Volume 8.6 fL (7.4-10.4); Platelet Count 214 10x3/uL (130-400); RBC Distribution Width 15.1 % (11.5-14.5); Red Blood Cell (RBC) Count 3.75 mill/uL (4.70-6.10); White Blood Cell (WBC) Count 13.3 10x3/uL (4.8-10.8)
[2022-07-20 07:52] LABS: ALT (SGPT) 39 U/L (8-55); AST (SGOT) 48 U/L (5-34); Albumin 1.9 g/dL (3.4-4.8); Alkaline Phosphatase 54 U/L (40-110); Anion Gap 12 mmol/L (10-20); BUN (Urea Nitrogen) 35 mg/dL (8.4-25.7); Bilirubin, Total 0.4 mg/dL (0.2-1.2); Calc. Creatinine Clearance 72 mL/min (70-130); Calcium 7.7 mg/dL (7.8-10.44); Carbon Dioxide 18 mmol/L (23-31); Chloride 117 mmol/L (98-107); Estimated GFR 86; Globulin 2.8 g/dL (2.4-3.5); Glucose 240 mg/dL (83-110); Potassium 4.3 mmol/L (3.5-5.1); Protein, Total 4.7 g/dL (5.8-8.1); Sodium 143 mmol/L (136-145)
[2022-07-20 09:05] LABS: Phosphorus 2.9 mg/dL (2.3-4.7)
[2022-07-20] MEDS: methylPREDNISolone Sod Succ 40 MG VIAL IVP SCH (09:21)
[2022-07-20] MEDS: Amiodarone 200 MG TAB PER TUBE SCH ×3 (09:22→21:04)
[2022-07-20] MEDS: Aspirin Chewable 81 MG TAB PO SCH (09:22)
[2022-07-20] MEDS: Senokot S 8.6-50 MG TAB PO SCH ×2 (09:22→21:04)
[2022-07-20] MEDS: Polyethylene Glycol 3350 17 GM Packet PO SCH (09:22)
[2022-07-20] MEDS: Furosemide 20 MG/2 ML VIAL SLOW IVP SCH (09:25)
[2022-07-20] MEDS ORDERED: Fentanyl CADD 100 ML ONE (10:01)
[2022-07-20] MEDS: Fentanyl CADD 100 ML IV SCH (10:06)
[2022-07-20 12:17] LABS: Fungus Stain Final report (.)
[2022-07-20] MEDS ORDERED: Bisacodyl 10 MG SUPP PR PRN (15:20)
[2022-07-20] MEDS: Pantoprazole 40 MG VIAL IVP SCH (21:04)
[2022-07-21] MEDS: HumaLOG 300 UNITS/3 ML VIAL SC PRN (05:06)
[2022-07-21] MEDS ORDERED: Metoclopramide HCl 10 MG/2 ML VIAL IVP SCH (06:00)
[2022-07-21] MEDS: Ipratropium/Albuterol 3 ML NEB NEB SCH (07:13)
[2022-07-21 07:47] LABS: Actual Bicarbonate (HCO3a) 22.7 mEq/L (22-28); Calcium, Ionized (arterial) 1.16 mmol/L (1.12-1.30); Carboxyhemoglobin (COHb) 0.2 gm% (0.0-3.0); Hemoglobin (Hb) 9.9 g/dL (14.0-18.0); O2 Tension (PaO2), arterial 67.6 mmHg (> 60.0); Potassium - ABG Lab 4.36 mmol/L (3.70-5.30); pH, Arterial 7.44 (7.35-7.45)
[2022-07-21 08:04] VITALS: TEMP 97.6
[2022-07-21 08:11] LABS: Puncture Site RRA
[2022-07-21] MEDS: Amiodarone 200 MG TAB PER TUBE SCH (10:26)
[2022-07-21] MEDS: Aspirin Chewable 81 MG TAB PO SCH (10:27)
[2022-07-21] MEDS: Furosemide 20 MG/2 ML VIAL SLOW IVP SCH (10:30)
[2022-07-21] MEDS: Polyethylene Glycol 3350 17 GM Packet PO SCH (10:31)
[2022-07-21] MEDS: Senokot S 8.6-50 MG TAB PO SCH (10:31)
[2022-07-21] MEDS: methylPREDNISolone Sod Succ 40 MG VIAL IVP SCH (10:32)
[2022-07-21 11:11] VITALS: BP 96/40
[2022-07-21] MEDS ORDERED: Morphine 2 MG/ML VIAL SLOW IVP SCH ×2 (11:30)
[2022-07-21] MEDS ORDERED: Lorazepam 2 MG/ML VIAL SLOW IVP SCH ×2 (11:30)
[2022-07-21] MEDS ORDERED: Morphine 2 MG/ML VIAL SLOW IVP PRN (11:45)
[2022-07-21] MEDS ORDERED: Lorazepam 2 MG/ML VIAL SLOW IVP PRN (11:45)
== END 2022-07-21 11:43 | disposition hospice, inpatient (51) | DRG 207 ==
LOC: SUATTDRO 16:06 → ERS 16:06 → 2SW 18:26 → OBSVTOIN 18:26 → 2NO 07-10 18:24 → CCU 07-12 06:16
PROVIDERS: ADMIT Internal Medicine; ATTEND Internal Medicine
PROC: 5A09357 Assistance with Respiratory Ventilation, Less than 24 Consecutive Hours, Continuous Positive Airway Pressure (ICD-10-PCS; 2022-07-12)
PROC: 4A133R1 Monitoring of Arterial Saturation, Peripheral, Percutaneous Approach (ICD-10-PCS; 2022-07-12)
PROC: 5A0935A Assistance with Respiratory Ventilation, Less than 24 Consecutive Hours, High Flow/Velocity Cannula (ICD-10-PCS; 2022-07-13)
PROC: 5A1955Z Respiratory Ventilation, Greater than 96 Consecutive Hours (ICD-10-PCS; principal; 2022-07-14)
PROC: 0BC18ZZ Extirpation of Matter from Trachea, Via Natural or Artificial Opening Endoscopic (ICD-10-PCS; 2022-07-14)
PROC: 0BD48ZX Extraction of Right Upper Lobe Bronchus, Via Natural or Artificial Opening Endoscopic, Diagnostic (ICD-10-PCS; 2022-07-14)
PROC: 0BH18EZ Insertion of Endotracheal Airway into Trachea, Via Natural or Artificial Opening Endoscopic (ICD-10-PCS; 2022-07-14)
PROC: 0W993ZZ Drainage of Right Pleural Cavity, Percutaneous Approach (ICD-10-PCS; 2022-07-15)
PROC: 3E033XZ Introduction of Vasopressor into Peripheral Vein, Percutaneous Approach (ICD-10-PCS; 2022-07-15)
PROC: 0DH67UZ Insertion of Feeding Device into Stomach, Via Natural or Artificial Opening (ICD-10-PCS; 2022-07-17)
PROC: 3E0G76Z Introduction of Nutritional Substance into Upper GI, Via Natural or Artificial Opening (ICD-10-PCS; 2022-07-17)
DX: J18.9 Pneumonia, unspecified organism (principal); A41.9 Sepsis, unspecified organism; J96.01 Acute respiratory failure with hypoxia; G93.41 Metabolic encephalopathy; R65.21 Severe sepsis with septic shock; F05 Delirium due to known physiological condition; J44.0 Chronic obstructive pulmonary disease with (acute) lower respiratory infection; J44.1 Chronic obstructive pulmonary disease with (acute) exacerbation; I45.2 Bifascicular block; I47.20 Ventricular tachycardia, unspecified; E87.3 Alkalosis; I48.92 Unspecified atrial flutter; E87.0 Hyperosmolality and hypernatremia; E87.1 Hypo-osmolality and hyponatremia; J90 Pleural effusion, not elsewhere classified; I50.32 Chronic diastolic (congestive) heart failure; Z51.5 Encounter for palliative care; Z66 Do not resuscitate; Z20.822 Contact with and (suspected) exposure to COVID-19; E11.9 Type 2 diabetes mellitus without complications; F17.210 Nicotine dependence, cigarettes, uncomplicated; I45.10 Unspecified right bundle-branch block; R45.1 Restlessness and agitation; F03.90 Unspecified dementia, unspecified severity, without behavioral disturbance, psychotic disturbance, mood disturbance, and anxiety; I48.0 Paroxysmal atrial fibrillation; R13.12 Dysphagia, oropharyngeal phase; D64.9 Anemia, unspecified; E87.6 Hypokalemia; R91.8 Other nonspecific abnormal finding of lung field; Z79.899 Other long term (current) drug therapy; Z71.6 Tobacco abuse counseling; Z78.1 Physical restraint status; Z79.84 Long term (current) use of oral hypoglycemic drugs
CPT/HCPCS: 10060; 36415; 36416; 36600; 70450; 71045; 71275; 80048; 80053; 81003; 82150; 82550; 82553; 82805; 82945; 83605; 83615; 83690; 83735; 83880; 83986; 84100; 84145; 84157; 84443; 84478; 84484; 85025; 85060; 85379; 87040; 87070; 87116; 87205; 87206; 87449; 87811; 88112; 88305; 88341; 88342; 89051; 90471; 90715; 93005; 93010; 93306; 94002; 94003; 94640; 94660; 96365; 96366; 97139; C9113; J0282; J0456; J0696; J1160; J1630; J1650; J1815; J1940; J2060; J2250; J2765; J2920; J3010; J3475; J3480; J3490; J7050; J7070; J7620; P9045; Q9967

== ENCOUNTER 2022-07-21 11:51 | Inpatient (IN) | payer OTHER ==
[2022-07-21] MEDS ORDERED: Morphine 2 MG/ML VIAL SLOW IVP PRN (12:05)
[2022-07-21] MEDS ORDERED: Lorazepam 2 MG/ML VIAL SLOW IVP PRN (12:06)
[2022-07-21] MEDS ORDERED: Lorazepam 2 MG/ML VIAL SLOW IVP SCH ×2 (12:15→13:00)
[2022-07-21] MEDS ORDERED: Morphine 2 MG/ML VIAL SLOW IVP SCH ×2 (12:15→13:00)
== END 2022-07-21 12:48 | disposition expired | DRG 951 ==
LOC: CCU 11:51
PROVIDERS: ADMIT Family Medicine; ATTEND Family Medicine
DX: Z51.5 Encounter for palliative care (principal); Z66 Do not resuscitate; J18.9 Pneumonia, unspecified organism; J44.0 Chronic obstructive pulmonary disease with (acute) lower respiratory infection; J44.1 Chronic obstructive pulmonary disease with (acute) exacerbation; F17.210 Nicotine dependence, cigarettes, uncomplicated; R77.8 Other specified abnormalities of plasma proteins; E11.9 Type 2 diabetes mellitus without complications
CPT/HCPCS: J2060; J2272